=== PATIENT | female | born 1975 | race Caucasian/White ===

== ENCOUNTER 2023-04-12 14:24 | Emergency (ER) | payer OTHER, SELFPAY ==
--- NOTE | ~2023-04-12 | XR_ITS ---
EXAMINATION: XR chest 2V DATE: 04/12/2023 15:10 INDICATION: Cough and congestion TECHNIQUE: PA and lateral views of the chest are obtained. COMPARISON: None available FINDINGS: The lungs are free of acute opacities. No pleural effusion or pneumothorax. The cardiomedia stinal silhouette is normal. There is mild thoracic spondylosis. IMPRESSION: 1. No acute cardiopulmonary abnormality. Reviewed, dictated and finalized at location L.
--- NOTE | 2023-04-12 14:35 | ED.GENADULT ---
HPI - General Adult General Chief complaint: Upper Respiratory Infection Stated complaint: Congestion/Cough/Chest Congestion Source: patient and RN notes reviewed History of Present Illness HPI narrative: 48 yo F presents to urgent care stating she had head congestion and sore throat a couple weeks ago. Pt states the head congestion has improved and her sore throat went away but did returned a couple days ago. Pt also reporting chest congestion, intermittent cough, and a fever last night. Pt states she will sometimes feel SOB. Denies any ear pain, congestion, chest pain, N/V/D. Pt was seen by telehealth by her workplace a couple days ago and was prescribed Flonase, an allergy pill, and an inhaler that she hasn't picked up yet. Related Data Home Medications Medication Instructions Recorded Confirmed galcanezumab-gnlm 120 mg/mL 120 mg subcut MONTHLY 05/31/20 04/12/23 subcutaneous pen injector (Emgality Pen) loratadine 10 mg tablet (Claritin) 10 mg PO DAILY PRN With Neulasta 05/31/20 04/12/23 rizatriptan 10 mg tablet 10 mg PO ONCE PRN Headache 05/31/20 04/12/23 tamoxifen 20 mg tablet 20 mg PO DAILY 04/12/23 04/12/23 ubrogepant 100 mg tablet (Ubrelvy) 100 mg PO ONCE PRN Migraine 04/12/23 04/12/23 Headache Allergies Allergy/AdvReac Type Severity Reaction Status Date / Time aspirin AdvReac Mild Verified 11/15/20 11:08 Review of Systems Review of Systems: Pertinent positives and pertinent negatives per HPI. [facility] Past Medical History Medical History (Updated 04/12/23 @ 15:19 by Estefanía Cross, SHELIA) Anemia Arthritis From an injury Hypothyroid IBS (irritable bowel syndrome) Migraine PVD (peripheral vascular disease) Family History Family History (Updated 05/31/20 @ 14:35 by Rowdy FuentesMD) Other Breast cancer, Onset Age: 42 Maternal Aunt Other Cancer, Onset Age: 35 Maternal Uncle Other Cancer Paternal Uncle Social History Social History (Updated 05/31/20 @ 14:37 by Rowdy FuentesMD) Smoking packs per day: 1 Smoking cigarettes per day: 20.0 Years smoked: 5 Smoking pack-years: 5.00 Smoking status: Former smoker Tobacco type: cigarettes Smoking end date: 06/19/19 Alcohol intake: current Drinks per week: 4 Spiritual care concerns: No Comments At the time of my signature, I reviewed and agree with the nursing past medical, surgical, social, and family history. There is no relevant family history pertinent to the patient complaint. Exam Narrative: GENERAL: This is a well-nourished, well-developed patient, in no apparent distress. HEAD: normocephalic, atraumatic. EYES: Sclera clear/white. Vision is grossly intact. EARS: External ears normal, auditory canals clear and without drainage, TMs normal without perforation. Hearing grossly intact. NOSE: External nose normal with no obvious nasal discharge, nares without redness, no rhinorrhea. THROAT: Mucous membranes moist, posterior pharynx clear. NECK: Neck supple, non-tender without lymphadenopathy, masses or thyromegaly. CARDIOVASCULAR: Regular rate and rhythm without murmurs, gallops, or rubs. RESPIRATORY: Clear to auscultation. Breath sounds equal bilaterally. No wheezes, rales, or rhonchi. GASTROINTESTINAL: Abdomen soft, non-tender, nondistended. Bowel sounds are active. No hepato-splenomegaly, or palpable masses. No guarding. SKIN: warm, intact with no suspicious lesions or rash, good texture and turgor. NEURO: awake, alert, and oriented to person, place and time. There were no obvious focal neurologic abnormalities. EXTREMITIES: No clubbing, cyanosis, or edema. No joint tenderness, effusion, or edema noted. BACK: Nontender without deformity or crepitus. No flank tenderness. Course Course Level of Care: Express Care Visit Vital Signs Vital signs: Vital Signs Temperature 99.4 F 04/12/23 14:39 Pulse Rate 100 04/12/23 14:39 Respiratory Rate 18 04/12/23 14:39
[2023-04-12 14:39] VITALS: BP 107/67; PULSE 100; RESP 18; TEMP 37.4; O2SAT 100
== END 2023-04-12 15:20 | disposition home or self-care (01) ==
PROVIDERS: Emergency Provider Nurse Practitioner Family; PCP Family Medicine
DX: B34.9 Viral infection, unspecified (principal); R06.02 Shortness of breath; E03.9 Hypothyroidism, unspecified; Z79.899 Other long term (current) drug therapy; Z87.891 Personal history of nicotine dependence
CPT/HCPCS: 71046; 87081; 87880; 99203; G0463